=== PATIENT | female | born 1985 | race Caucasian/White ===

== ENCOUNTER 2019-11-19 13:48 | Emergency (ER) | payer MEDICAID ==
[~2019-11-19] VITALS: Ht 162.6 cm; Wt 59.0 kg
[~2019-11-19 13:48] MED LIST: IBUP-1985 PO
[2019-11-19 13:51] VITALS: BP 109/66
[2019-11-19 14:38] LABS: URINE HCG NEGATIVE (NEG)
[2019-11-19] MEDS ORDERED: ACYC-202 PO (14:39)
[2019-11-19] MEDS ORDERED: DOXY100C76 PO (14:39)
[2019-11-19 14:40] LABS: CLARITY,URINE CLOUDY (Clear); COLOR,URINE YELLOW (Yellow); GLUCOSE, URINE NEGATIVE (Neg); KETONES,URINE NEGATIVE (Neg); LEUKOCYTE ESTERASE ,URINE MODERATE (Neg); NITRITES, URINE NEGATIVE (Neg); OCCULT BLOOD,URINE NEGATIVE (Neg); PROTEIN,URINE NEGATIVE (Neg); UROBILINOGEN,URINE 0.2 E.U/dL (0.2-1.0)
[2019-11-19 14:41] LABS: UA COLLECTION TYPE CLN CATCH MIDSTREAM
[2019-11-19 14:45] LABS: BACTERIA,URINE 4+ /HPF (Neg); MUCUS STRANDS FEW /LPF (Neg); RBC,URINE NONE SEEN /HPF (0-2); SQUAMOUS EPITHELIAL CELL,UR FEW /LPF (FEW); WBC,URINE 20-30 /HPF (0-4)
== END 2019-11-19 15:02 | disposition home or self-care (01) ==
LOC: ER 13:48
DX: A64 Unspecified sexually transmitted disease (principal); N89.8 Other specified noninflammatory disorders of vagina; F11.90 Opioid use, unspecified, uncomplicated; Z59.0 Homelessness; Z88.8 Allergy status to other drugs, medicaments and biological substances; Z79.899 Other long term (current) drug therapy
CPT/HCPCS: 81001; 81025; 87088; 99283

== ENCOUNTER 2022-08-15 21:13 | Emergency (ER) | payer MEDICAID ==
[~2022-08-15] VITALS: Ht 162.6 cm; Wt 59.1 kg
[2022-08-15] MEDS ORDERED: IBUP-1984 PO (22:54)
[2022-08-15] MEDS ORDERED: CYCL-1 PO (22:54)
[2022-08-15] MEDS ORDERED: ketorolac trometh. 30mg/ml inj. IM ONE (22:55)
[2022-08-15] MEDS ORDERED: orphenadrine citrate 60mg/2ml inj. IM ONE (22:55)
[2022-08-16 00:09] VITALS: BP 93/52
== END 2022-08-16 00:12 | disposition home or self-care (01) ==
LOC: ER 21:14
DX: G44.209 Tension-type headache, unspecified, not intractable (principal); M54.2 Cervicalgia; J45.909 Unspecified asthma, uncomplicated; F11.90 Opioid use, unspecified, uncomplicated; Z59.00 Homelessness unspecified; Z56.0 Unemployment, unspecified; Z88.0 Allergy status to penicillin; Z79.899 Other long term (current) drug therapy
CPT/HCPCS: 96372; 99284; J1885; J2360